=== PATIENT | female | born 1930 | race Caucasian/White ===

== ENCOUNTER 2018-11-04 22:19 | Inpatient (IN) | payer MEDICARE, OTHER ==
[2018-11-04] VITALS (7 sets, daily range): BP systolic 125–143; BP diastolic 64–87
[~2018-11-04] VITALS: Ht 152.4 cm; Wt 47.6 kg
[~2018-11-04 22:19] MED LIST: AMLO5TAB2 PO; EST1.25T PO; METO25TA PO; TRIA0.253 PO; [UNRECOGNIZED DRUG - OTHER] PO
--- OUTSIDE RECORDS SUMMARY | 2018-11-04 22:24 | XMS REPORT | Continuity of Care Document ---
Author Author [facility] Organization [facility] Address Unknown Phone Unavailable Allergies Active Description Code Type Severity Reaction Onset Reported/Identified Relationship to Patient Clinical Status Yes levofloxacin [id number] Drug Allergy Unknown N/A 07/06/2016 Yes Sulfa (Sulfonamide Antibiotics) [id number] Drug Allergy Unknown N/A 2015 Medications There is no data. 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, TYPE II OR UNSPEC TY 04/06/2014 ERIKA ANDRADE DPM Ot 726.91 EXOSTOSIS, SITE NOS 04/06/2014 ERIKA ANDRADE DPM Ot V57.1 PHYSICAL THERAPY NEC 07/06/2016 ERIKA ANDRADE DPM Ot M20.42 OTHER HAMMER TOE(S) (ACQUIRED), LEFT FLY 07/06/2016 ERIKA ANDRADE DPM Ot Z01.818 ENCOUNTER FOR OTHER PREPROCEDURAL EXAMIN 07/06/2016 ERIKA ANDRADE DPM Ot Z11.2 ENCOUNTER FOR SCREENING FOR OTHER BACTER 07/07/2016 ERIKA ANDRADE DPM Ot M20.42 OTHER HAMMER TOE(S) (ACQUIRED), LEFT FLY 07/07/2016 ERIKA ANDRADE DPM Ot Z01.818 ENCOUNTER FOR OTHER PREPROCEDURAL EXAMIN 07/07/2016 ERIKA ANDRADE DPM Ot Z11.2 ENCOUNTER FOR SCREENING FOR OTHER BACTER 07/10/2016 ERIKA ANDRADE DPM Ot M89.9 DISORDER OF BONE, UNSPECIFIED 07/13/2016 ERIKA ANDRADE DPM Ot M89.9 DISORDER OF BONE, UNSPECIFIED 07/15/2016 ERIKA ANDRADE DPM Ot M89.9 DISORDER OF BONE, UNSPECIFIED 01/20/2017 ERIKA ANDRADE DPM Ot 726.91 EXOSTOSIS, SITE NOS 01/20/2017 ERIKA ANDRADE DPM Ot V72.84 EXAM PRE-OPERATIVE NOS 01/20/2017 ANDRADE DPM, ERIKA P Ot V74.8 SCREEN-BACTERIAL DIS NEC 01/20/2017 ANDRADE DPM, ERIKA P Ot 726.91 EXOSTOSIS, SITE NOS 01/20/2017 ANDRADE DPM, ERIKA P Ot V72.84 EXAM PRE-OPERATIVE NOS 01/20/2017 ANDRADE DPM, ERIKA P Ot V74.8 SCREEN-BACTERIAL DIS NEC 10/11/2018 ANDRADE DPM, ERIKA P Ot 726.91 EXOSTOSIS, SITE NOS 10/11/2018 ANDRADE DPM, ERIKA P Ot V72.84 EXAM PRE-OPERATIVE NOS 10/11/2018 ANDRADE DPM, ERIKA P Ot V74.8 SCREEN-BACTERIAL DIS NEC 11/04/2018 ANDRADE DPM, ERIKA P Ot 726.91 EXOSTOSIS, SITE NOS 11/04/2018 NADRADE DPM, ERIKA P Ot V72.84 EXAM PRE-OPERATIVE NOS 11/04/2018 ANDRADE DPM, ERIKA P Ot V74.8 SCREEN-BACTERIAL DIS NEC Procedures There is no data. Results Test Result Range Methicillin resistant Staphylococcus aureus (MRSA) screening culture - 15:40 Methicillin resistant Staphylococcus aureus (MRSA) screening culture NEG NRG Encounters ACCT No. Visit Date/Time Discharge Status Pt. Type Provider Facility Loc./Unit Complaint [id number] 07/10/2016 07:04:00 07/10/2016 10:30:00 DIS Outpatient ERIKA ANDRADE DPM [facility] LEFT FIFTH HAMMER TOE [id number] 07/06/2016 15:17:00 07/06/2016 16:19:00 DIS Outpatient ERIKA ANDRADE DPM [facility] PREOP LEFT FIFTH HAMMER TOE [id number] 04/06/2014 06:00:00 04/06/2014 10:15:00 DIS Outpatient ERIKA ANDRADE DPM [facility] EXOTOSIS RIGHT FOOT [id number] 04/04/2014 08:00:00 04/04/2014 23:59:59 CLS Outpatient ERIKA ANDRADE DPM [facility] PREOP EXOTOSIS RIGHT FOOT [id number] 11/04/2018 22:20:00 ACT Emergency JESS WATKINS, JOVANI Webster [facility] ER FS HIGH HEART RATE
--- NOTE | 2018-11-04 22:57 | ED Cardiac General ---
History of Present Illness General Chief Complaint: Cardiac/General Problems Stated Complaint: HIGH HEART RATE Source: patient Exam Limitations: no limitations History of Present Illness Date Seen by Provider: Nov 04, 2018 Time Seen by Provider: 22:53 Initial Comments Patient developed rapid heartbeat and shortness of breath while sitting at home 30 minutes prior to arrival. Her drove her here. She has had this sensation several times over the past week or 2 but it is always gone away. She does not have any chest pain. She is compliant with her medications. She has a history of hypertension and hypercholesterolemia. She has no history of coronary artery disease or stroke. Allergies and Home Medications Allergies Coded Allergies: Sulfa (Sulfonamide Antibiotics) (Verified Allergy, Unknown, 07/06/16) levofloxacin (Verified Allergy, Unknown, 07/06/16) Home Medications Amlodipine Besylate 5 Mg Tablet, 5 MG PO DAILY, (Reported) Estrogens,Conjugated 1.25 Mg Tablet, 1 TAB PO DAILY, (Reported) Metoprolol Succinate 25 Mg Tab.sr.24h, 1 EACH PO DAILY, (Reported) Triazolam 0.25 Mg Tablet, 0.25 MG PO HS, (Reported) [Loped] , 600 MG PO BID, (Reported) Patient Home Medication List Home Medication List Reviewed: Yes Review of Systems Review of Systems Constitutional: malaise EENTM: No Symptoms Reported Respiratory: Shortness of Air Cardiovascular: Denies Chest Pain; Irregular Heart Rate, Palpitations Gastrointestinal: No Symptoms Reported Genitourinary: No Symptoms Reported Musculoskeletal: no symptoms reported Skin: no symptoms reported Psychiatric/Neurological: No Symptoms Reported Hematologic/Lymphatic: No Symptoms Reported All Other Systems Reviewed Negative Unless Noted: Yes Past Szjeiwb-Lnjxdt-Mwdwfg Hx Patient Social History Alcohol Use: Denies Use Smoking Status: Never a Smoker Recent Foreign Travel: No Contact w/Someone Who Travel: No Recent Hopitalizations: No Immunizations Up To Date Tetanus Booster (TDap): Unknown Date of Pneumonia Vaccine: May 16, 2009 Date of Influenza Vaccine: Jun 22, 2016 Seasonal Allergies Seasonal Allergies: Yes Past Medical History Hysterectomy High Cholesterol, Hypertension Headaches /Migraines Reproductive Disorders: No Sexually Transmitted Disease: No HIV/AIDS: No Arthritis Loss of Vision: Bilateral Hearing Impairment: Denies Adverse Reaction/Blood Tranf: No (HAS HAD BLOOD WITH NO REACTION) Physical Exam Vital Signs Vital Signs - First Documented 11/04/18 23:10 Pulse 174 B/P (MAP) 143/76 (98) Capillary Refill : Height, Weight, BMI Height: 4'1.00" Weight: 113lbs. 4.0oz. 51.352198nn; 33.2 BMI Method: General Appearance: No Apparent Distress, WD/WN HEENT: PERRL/EOMI, Pharynx Normal Neck: Supple Respiratory: Lungs Clear, Normal Breath Sounds Cardiovascular: No Edema, No Gallop, Tachycardia Gastrointestinal: Normal Bowel Sounds, No Pulsatile Mass Extremity: Normal Inspection, Normal Range of Motion; No Calf Tenderness, No Pedal Edema Neurologic/Psychiatric: Alert, No Motor/Sensory Deficits, Normal Mood/Affect Skin: Normal Color, Warm/Dry Progress/Results/Core Measures Results/Orders Lab Results Laboratory Tests Test 11/04/18 22:58 Range/Units White Blood Count 5.9 4.3-11.0 10^3/uL Red Blood Count 4.00 L 4.35-5.85 10^6/uL Hemoglobin 13.4 11.5-16.0 G/DL Hematocrit 41 35-52 % Mean Corpuscular Volume 97 80-99 FL Mean Corpuscular Hemoglobin 34 25-34 PG Mean Corpuscular Hemoglobin Concent 33 32-36 G/DL Red Cell Distribution Width 14.0 10.0-14.5 % Platelet Count 172 130-400 10^3/uL Mean Platelet Volume 10.4 7.4-10.4 FL Neutrophils (%) (Auto) 50 42-75 % Lymphocytes (%) (Auto) 21 12-44 % Monocytes (%) (Auto) 23 H 0-12 % Eosinophils (%) (Auto) 3 0-10 % Basophils (%) (Auto) 2 0-10 % Neutrophils # (Auto) 2.9 1.8-7.8 X 10^3 Lymphocytes # (Auto) 1.2 1.0-4.0 X 10^3 Monocytes # (Auto) 1.3 H 0.0-1.0 X 10^3 Eosinophils # (Auto) 0.2 0.0-0.3 10^3/uL Basophils # (Auto) 0.1 0.0-0.1 10^3/uL Prothrombin Time 14.3 12.2-14.7 SEC INR Comment 1.1 0.8-1.4 Activated Partial Thromboplast Time 33 24-35 SEC My Orders Orders - JOVANI MERCADO MD Cbc With Automated Diff (11/04/18 22:44) Magnesium (11/04/18 22:44) Chest 1 View Ap/Pa Only (11/04/18 22:44) Ekg Tracing (11/04/18 22:44) Comprehensive Metabolic Panel (11/04/18 22:44) Protime With Inr (11/04/18 22:44) Partial Thromboplastin Time (11/04/18 22:44) Monitor-Rhythm Ecg Trace Only (11/04/18 22:44) Saline Lock/Iv-Start (11/04/18 22:44) Probnp Fs (11/04/18 22:44) Diltiazem Injection (Cardizem Injection) (11/04/18 23:00) Troponin T (11/04/18 23:06) Ns (Ivpb) (Sodium C... W/Diltiazem Injec (11/04/18 23:15) Enoxaparin Injection (Lovenox Injection) (11/04/18 23:15) Manual Differential (11/04/18 22:58) Medications Given in ED Current Medications Medications Dose Ordered Sig/Edward Route Start Time Stop Time Status Last Admin Dose Admin Diltiazem HCl 20 mg ONCE ONCE IVP 11/04/18 23:00 11/04/18 23:02 DC 11/04/18 23:06 15 MG Vital Signs/I&O 11/04/18 11/04/18 23:10 23:13 Pulse 174 96 B/P (MAP) 143/76 (98) 143/73 (96) Progress Progress Note : Time: 23:24 Progress Note Rate came down nicely with Cardizem. She was given 15 mg out of the 20 mg ordered. Her weight currently is 87 bpm. She will need transfer to a higher level care. She request [place]. Lovenox was given and she was started on a Cardizem drip. Initial ECG Impression Date: Nov 04, 2018 Initial ECG Impression Time: 22:56 Initial ECG Rate: 178 Initial ECG Rhythm: SVT Initial ECG Intervals: Normal Initial ECG Impression: Atrial Fibrillation w/RVR Initial ECG Comparisson: No Previous ECG Available Departure Communication (Admissions) Time/Spoke to Admitting Phy: 23:[address] Coffey at [facility]. She accepted transfer of the patient to the ICU. Impression Primary Impression: Atrial fibrillation Additional Impression: Dyspnea Disposition: ADMITTED INPATIENT Condition: Stable Admissions Decision to Admit Reason: Admit from ER (General) Decision to Admit/Date: Nov 04, 2018 Time/Decision to Admit Time: 23:45 Departure-Patient Inst. Referrals: DUANE ALVAREZ MD (PCP) Primary Care Physician JOVANI MERCADO MD Nov 04, 2018 22:57
[2018-11-04] MEDS ORDERED: DILTIAZEM 25 MG/5 ML INJ (CARDIZEM) VIAL IVP ONE (23:00)
[2018-11-04 23:15] LABS: WHITE BLOOD COUNT 5.9 10^3/uL (4.3-11.0)
[2018-11-04] MEDS ORDERED: DILTIAZEM INJECTION 125 MG in NS (IVPB) 100 ML IV SCH (23:15)
[2018-11-04] MEDS ORDERED: ENOXAPARIN 60 MG/0.6 ML (LOVENOX) SYR SC ONE (23:15)
[2018-11-04 23:16] LABS: BASOPHILS % (AUTO) 2 % (0-10); EOSINOPHILS % (AUTO) 3 % (0-10); HEMATOCRIT 41 % (35-52); LYMPHOCYTES % (AUTO) 21 % (12-44); MEAN CORPUSCULAR HGB CONC 33 G/DL (32-36); MEAN CORPUSCULAR VOLUME 97 FL (80-99); MEAN PLATELET VOLUME 10.4 FL (7.4-10.4); MONOCYTES % (AUTO) 23 % (0-12); NEUTROPHILS % (AUTO) 50 % (42-75); PLATELET COUNT 172 10^3/uL (130-400)
[2018-11-04 23:17] LABS: BASOPHILS # (AUTO) 0.1 10^3/uL (0.0-0.1); EOSINOPHILS # (AUTO) 0.2 10^3/uL (0.0-0.3); LYMPHOCYTES # (AUTO) 1.2 X 10^3 (1.0-4.0); MONOCYTES # (AUTO) 1.3 X 10^3 (0.0-1.0); NEUTROPHILS # (AUTO) 2.9 X 10^3 (1.8-7.8)
[2018-11-04 23:22] LABS: INR 1.1 (0.8-1.4); PROTHROMBIN TIME PATIENT 14.3 SEC (12.2-14.7)
[2018-11-04 23:42] LABS: HEMOGLOBIN 13.4 G/DL (11.5-16.0); MEAN CORPUSCULAR HEMOGLOBIN 34 PG (25-34)
--- NOTE | 2018-11-04 23:49 | NUR ---
Dr Elizondo notified [facility] order for 5 vials 25mg per 5 mL diltalizem to be pulled rather than 125mg vial of 25mL of diltalizem. verbal order to pull 25mL vial to mix cardizem drip.
[2018-11-05] VITALS (30 sets, daily range): BP systolic 125–159; BP diastolic 60–91
[2018-11-05] MEDS ORDERED: NS IV 1000 ML 1,000 ML IV SCH
[2018-11-05 00:02] LABS: NEUTROPHILS % (MANUAL) 49 %
[2018-11-05 00:03] LABS: BAND NEUTROPHILS 8 %; BASOPHILS % (MANUAL) 1 %; EOSINOPHILS % (MANUAL) 2 %; LYMPHOCYTES % (MANUAL) 19 %; MONOCYTES % (MANUAL) 19 %; MYELOCYTES % 2 %
[2018-11-05 00:15] LABS: BILIRUBIN,TOTAL 0.4 MG/DL (0.1-1.0); CALCIUM 9.3 MG/DL (8.5-10.1); CREATININE SERUM 0.91 MG/DL (0.60-1.30); MAGNESIUM 1.9 MG/DL (1.8-2.4); POTASSIUM 3.5 MMOL/L (3.6-5.0)
[2018-11-05 00:16] LABS: ALBUMIN 3.8 GM/DL (3.2-4.5); TOTAL PROTEIN 7.4 GM/DL (6.4-8.2)
--- NOTE | 2018-11-05 00:30 | NUR ---
started Normal saline at KVO for this Patient.
--- NOTE | 2018-11-05 00:59 | NUR ---
45 mL Normal saline infused
[2018-11-05] MEDS ORDERED: ACETAMINOPHEN 325 MG TABLET PO PRN (02:30)
[2018-11-05 03:45] LABS: BASOPHILS # (AUTO) 0.1 10^3/uL (0.0-0.1); BASOPHILS % (AUTO) 1 % (0-10); EOSINOPHILS # (AUTO) 0.2 10^3/uL (0.0-0.3); EOSINOPHILS % (AUTO) 3 % (0-10); HEMATOCRIT 37 % (35-52); HEMOGLOBIN 12.7 G/DL (11.5-16.0); LYMPHOCYTES # (AUTO) 0.9 X 10^3 (1.0-4.0); LYMPHOCYTES % (AUTO) 16 % (12-44); MEAN CORPUSCULAR HEMOGLOBIN 32 PG (25-34); MEAN CORPUSCULAR HGB CONC 34 G/DL (32-36); MEAN CORPUSCULAR VOLUME 95 FL (80-99); MEAN PLATELET VOLUME 10.3 FL (7.4-10.4); MONOCYTES # (AUTO) 1.2 X 10^3 (0.0-1.0); MONOCYTES % (AUTO) 20 % (0-12); NEUTROPHILS # (AUTO) 3.5 X 10^3 (1.8-7.8); NEUTROPHILS % (AUTO) 60 % (42-75); PLATELET COUNT 178 10^3/uL (130-400); RED CELL DISTRIBUTION WIDTH 14.2 % (10.0-14.5); WHITE BLOOD COUNT 5.9 10^3/uL (4.3-11.0)
[2018-11-05 03:56] LABS: BUN/CREATININE RATIO 14; CARBON DIOXIDE 17 MMOL/L (21-32); CHLORIDE 109 MMOL/L (98-107); CREATININE SERUM 0.85 MG/DL (0.60-1.30); GFR ESTIMATED > 60; GLUCOSE 130 MG/DL (70-105); MAGNESIUM 1.7 MG/DL (1.8-2.4); PHOSPHORUS 2.6 MG/DL (2.3-4.7); POTASSIUM 2.8 MMOL/L (3.6-5.0); SODIUM 138 MMOL/L (135-145)
[2018-11-05] MEDS: NS IV 1000 ML 1,000 ML IV SCH (04:36)
[2018-11-05] MEDS: POTASSIUM CL 10MEQ/50ML IVPB 50 ML IV SCH ×8 (04:36→23:45)
[2018-11-05] MEDS: DILTIAZEM 125 MG/NS 100 ML IV SCH ×2 (04:44)
[2018-11-05] MEDS ORDERED: DILTIAZEM 125 MG/25 ML IV (CARDIZEM) IV ONE (05:11)
[2018-11-05] MEDS: MAGNESIUM 1 GM/100 ML IVPB 100 ML IV SCH ×2 (06:58→08:26)
[2018-11-05] MEDS: KCL 20 MEQ TAB (K-DUR) PO SCH (06:58)
--- NOTE | 2018-11-05 07:06 | Diagnostic Imaging Report ---
INDICATION: Chest pain. Time of exam: 10:59 PM No prior studies are available for comparison. Right hemidiaphragm is elevated. The heart size is normal. No infiltrates are seen. The pulmonary vascularity is normal. No effusion or pneumothorax is identified. IMPRESSION: No acute cardiopulmonary process is detected. Dictated by: Dictated on workstation # [id number]
[2018-11-05] MEDS ORDERED: FLU QUADRIvalent (5+ YOA) 2018-2019 (AFLURIA) 0.5 ML IM ONE (07:15)
[2018-11-05] MEDS ORDERED: ENOXAPARIN 100 MG/1 ML (LOVENOX) SYR SC SCH (09:00)
--- NOTE | 2018-11-05 09:52 | History & Physical-Hospitalist ---
History of Present Illness HPI/Chief Complaint This is an 88-year-old white female who was accepted in transfer from [place] last night with new onset atrial fibrillation with rapid ventricular response. The patient notes that for the last several weeks she's been having intermittent trouble with her heart racing feeling dizzy with these episodes and diaphoretic. She would lay down and they would pass. Last night this episode did not pass and she presented to the emergency room with similar complaints. Currently the patient is awake and alert and in sinus rhythm and without complaint Source: patient Exam Limitations: no limitations Date Seen 11/05/18 Time Seen by a Provider: 09:00 Attending Physician Irais Coffey MD PCP Duane Dimas MD Referring Physician Date of Admission Nov 04, 2018 at 23:40 Home Medications & Allergies Home Medications Reviewed patient Home Medication Reconciliation performed by pharmacy medication reconciliations development technician and/or nursing. Patients Allergies have been reviewed. 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) Alcohol Use: Denies Use Recreational Drug Use: No Smoking Status: Never a Smoker 2nd Hand Smoke Exposure: No Recent Foreign Travel: No Contact w/other who traveled: No Recent Hopitalizations: No Recent Infectious Disease Expo: No Immunizations Up To Date Tetanus Booster (TDap): Unknown Date of Pneumonia Vaccine: Oct 28, 2014 Date of Influenza Vaccine: Aug 30, 2018 Seasonal Allergies Seasonal Allergies: No Past Medical History Surgeries: Appendectomy, Bladder Surgery, Hysterectomy Cardiac: High Cholesterol, Hypertension Neurological: Headaches /Migraines Reproductive: No Sexually Transmitted Disease: No HIV/AIDS: No Hysterectomy Genitourinary: Bladder Infection, UTI-Chronic Musculoskeletal: Arthritis Loss of Vision: Bilateral Hearing Impairment: Denies Adverse Reaction to Blood Gaming: No (HAS HAD BLOOD WITH NO REACTION) Family History Reviewed Nursing Family Hx No Pertinent Family Hx Review of Systems Constitutional: see HPI, diaphoresis, dizziness (With episodes where her heart races) EENTM: no symptoms reported Respiratory: no symptoms reported Cardiovascular: palpitations Gastrointestinal: no symptoms reported Genitourinary: frequency Musculoskeletal: no symptoms reported Skin: change in color (Lower legs) Psychiatric/Neurological: No Symptoms Reported Physical Exam Physical Exam Vital Signs Vital Signs - First Documented 11/04/18 11/05/18 22:25 01:50 Temp 99.6 Pulse 179 Resp 20 B/P (MAP) 135/88 (104) Pulse Ox 98 O2 Delivery Room Air Capillary Refill : Less Than 3 Seconds Height, Weight, BMI Height: 5'0.00" Weight: 105lbs. 0.0oz. 47.147003aq; 20.5 BMI Method:Stated General Appearance: No Apparent Distress, WD/WN HEENT: Other (Tinctures upper and lower) Neck: Full Range of Motion, Normal Inspection, Supple Respiratory: Chest Non Tender, Lungs Clear, Normal Breath Sounds, No Accessory Muscle Use, No Respiratory Distress Cardiovascular: No Gallop, Other (Decreased lower extremity pulses with chronic venous stasis change) Gastrointestinal: Normal Bowel Sounds, No Organomegaly, Non Tender, Soft Back: Normal Inspection, No CVA Tenderness, No Vertebral Tenderness Extremity: Calf Tenderness Neurologic/Psychiatric: Alert, Oriented x3, No Motor/Sensory Deficits, Normal 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 Imaging: Reviewed Imaging Report Assessment/Plan Admission Diagnosis A. fib with RVR monocytosis hypokalemia metabolic acidosis hypertension by history hyperlipidemia chronic urinary tract infections Hypomagnesemia Plan to replace electrolytes check urine for protein and consult cardiology Admission Status: Observation Diagnosis/Problems Diagnosis/Problems (1) Atrial fibrillation Status: Acute Qualifiers: Atrial fibrillation type: paroxysmal Qualified Codes: I48.0 - Paroxysmal atrial fibrillation (2) Metabolic acidosis Status: Chronic (3) Hypokalemia Status: Acute (4) Monocytosis (5) Dyspnea Status: Acute Clinical Quality Measures DVT/VTE Risk/Contraindication: Risk Factor Score Per Nursin RFS Level Per Nursing on Admit: 2=Moderate Copy Copies To 1: DUANE DIMAS MD, KATHLEEN M MD Nov 05, 2018 09:51
[2018-11-05 11:54] LABS: BILIRUBIN,URINE NEGATIVE (NEGATIVE); CLARITY,URINE CLEAR; COLOR,URINE YELLOW; GLUCOSE, URINE (UA) NEGATIVE (NEGATIVE); KETONES,URINE NEGATIVE (NEGATIVE); LEUKOCYTE ESTERASE ,URINE NEGATIVE (NEGATIVE); NITRITE,URINE NEGATIVE (NEGATIVE); PH,URINE 7 (5-9); PROTEIN,URINE NEGATIVE (NEGATIVE); UROBILINOGEN,URINE NORMAL (NORMAL)
[2018-11-05 12:03] LABS: BACTERIA,URINE TRACE /HPF
--- NOTE | 2018-11-05 15:47 | Consultation-Cardiology ---
HPI-Cardiology Cardiology Consultation: Date of Consultation 11/05/18 Time Seen by a Provider: 15:10 Date of Admission Attending Physician Irais Coffey MD Admitting Physician Steven Dimas MD Consulting Physician DEVON ANDREWS MD, MA, FACP, FACC, FSCAI, CCDS HPI: Chief Complaint: Reason for consultation: PAF HPI: 88 yo woman with 2 years of palpitations, averaging once or twice a month, lasting up to an hour and a half, consisting of a feeling or rapid heart beat that is irreg and associated with a feeling of gen weakness. Onset is sudden and so is termination. Had two episodes yesterday and decided to come in to [facility]. Was diagnosed with PAF, placed on iv dilt, converted to NSR, was sent to this hosp for further eval. She denies cp or syncope or shortness of breath or leg swelling Review of Systems-Cardiology Review of Systems Constitutional: No malaise; tiredness (chronic); No weight loss, No weight gain Eyes: No vision change Ears/Nose/Throat: No ear discharge, No nasal drainage, No recent hearing loss Respiratory: As described under HPI Cardiovascular: As described under HPI Gastrointestinal: No constipation, No diarrhea, No nausea, No vomiting Genitourinary: No dysuria, No hematuria, No urine frequency changes Musculoskeletal: back pain (chronic) Skin: other (burises easily); No ulcerations Psychiatric/Neurological: No seizure, No focal weakness, No syncope Hematologic: other (bruises easily); No bleeding abnormalities All Other Systems Reviewed Negative Unless Noted: Yes HFW-Lrnahb-Nfnfqn Hx Patient Social History Marrital Status: (For 13 years cycle marriage) 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 Family Medical History Family Medical History: No fam h/o early CAD or SCD Allergies and Home Medications Allergies Coded Allergies: Sulfa (Sulfonamide Antibiotics) (Verified Allergy, Unknown, 07/06/16) levofloxacin (Verified Allergy, Unknown, 07/06/16) Home Medications Amlodipine Besylate 5 Mg Tablet, 5 MG PO DAILY, (Reported) Estrogens,Conjugated 1.25 Mg Tablet, 1 TAB PO DAILY, (Reported) Metoprolol Succinate 25 Mg Tab.sr.24h, 1 EACH PO DAILY, (Reported) Triazolam 0.25 Mg Tablet, 0.25 MG PO HS, (Reported) [Loped] , 600 MG PO BID, (Reported) Patient Home Medication List Home Medication List Reviewed: Yes Physical Exam-Cardiology Physical Exam Vital Signs/I&O 11/05/18 11/05/18 11/05/18 11/05/18 04:00 04:00 05:00 06:00 Pulse 71 71 73 Resp 12 17 18 B/P (MAP) 146/71 (96) 139/70 (93) 130/70 (90) Pulse Ox 98 96 95 96 O2 Delivery Room Air Room Air Room Air Room Air 11/05/18 11/05/18 11/05/18 11/05/18 06:59 07:00 08:00 08:00 Temp 98.3 Pulse 71 71 72 Resp 17 16 B/P (MAP) 130/80 (97) 125/71 (89) Pulse Ox 94 96 O2 Delivery Room Air Room Air 11/05/18 11/05/18 11/05/18 11/05/18 08:00 09:00 10:00 11:00 Pulse 73 69 71 B/P (MAP) 129/62 (84) 132/68 (89) 144/68 (93) Pulse Ox 97 94 94 97 O2 Delivery Room Air Room Air Room Air Room Air 11/05/18 11/05/18 11/05/18 11/05/18 12:00 12:00 13:00 13:10 Temp 98.3 Pulse 68 71 70 Resp 31 16 B/P (MAP) 132/60 (84) 136/70 (92) Pulse Ox 97 96 95 O2 Delivery Room Air Room Air Room Air 11/05/18 11/05/18 14:00 15:00 Pulse 73 69 Resp 18 18 B/P (MAP) 128/84 (99) 139/66 (90) Pulse Ox 96 96 O2 Delivery Room Air Room Air Capillary Refill : Less Than 3 Seconds Constitutional: AAO x 3, well-developed, well-nourished HEENT: EOMI, hearing is well preserved; No xanthelasmas are seen Neck: No carotid bruit; carotid pulses are 2 + bilaterally, with good upstrokes Respiratory: No accessory muscle use; lungs clear to percussion, lungs clear to auscultation Cardiovascular: regular rate-rhythm, S1 and S2, systolic murmur (faint RASHMI at card base) Gastrointestinal: No tender; soft; No guarding, No rebound; audible bowel sounds Extremities: No clubbing, No cyanosis, No significant edema Neurologic/Psychiatric: oriented x 3, grossly intact, power is 5/5 both on sides Skin: No rash on exposed areas, No ulcerations on exposed areas; other ( multiple bruises on the upper and lower ext, at sites of venous punctures or minor trauma (per pt)) Data Review Labs Laboratory Tests 11/04/18 22:58: White Blood Count 5.9, Red Blood Count 4.00L, Hemoglobin 13.4, Hematocrit 41, Mean Corpuscular Volume 97, Mean Corpuscular Hemoglobin 34, Mean Corpuscular Hemoglobin Concent 33, Red Cell Distribution Width 14.0, Platelet Count 172, Mean Platelet Volume 10.4, Neutrophils (%) (Auto) 50, Lymphocytes (%) (Auto) 21 , Monocytes (%) (Auto) 23H, Eosinophils (%) (Auto) 3, Basophils (%) (Auto) 2, Neutrophils # (Auto) 2.9, Lymphocytes # (Auto) 1.2, Monocytes # (Auto) 1.3H, Eosinophils # (Auto) 0.2, Basophils # (Auto) 0.1, Neutrophils % (Manual) 49, Lymphocytes % (Manual) 19, Monocytes % (Manual) 19, Eosinophils % (Manual) 2, Basophils % (Manual) 1, Myelocytes % 2, Band Neutrophils 8, Prothrombin Time 14.3, INR Comment 1.1, Activated Partial Thromboplast Time 33, Sodium Level 140 , Potassium Level 3.5L, Chloride Level 104, Carbon Dioxide Level 15L, Anion Gap 21H, Blood Urea Nitrogen 14, Creatinine 0.91, Estimat Glomerular Filtration Rate 58, BUN/Creatinine Ratio 15, Glucose Level 129H, Calcium Level 9.3, Corrected Calcium 9.5, Magnesium Level 1.9, Total Bilirubin 0.4, Aspartate Amino Transf (AST/SGOT) 32, Alanine Aminotransferase (ALT/SGPT) 18, Alkaline Phosphatase 102, Troponin T 14H, Pro-B-Type Natriuretic Peptide 152.9H, Total Protein 7.4, Albumin 3.8 11/05/18 03:02: White Blood Count 5.9, Red Blood Count 3.92L, Hemoglobin 12.7, Hematocrit 37, Mean Corpuscular Volume 95, Mean Corpuscular Hemoglobin 32, Mean Corpuscular Hemoglobin Concent 34, Red Cell Distribution Width 14.2, Platelet Count 178, Mean Platelet Volume 10.3, Neutrophils (%) (Auto) 60, Lymphocytes (%) (Auto) 16 , Monocytes (%) (Auto) 20H, Eosinophils (%) (Auto) 3, Basophils (%) (Auto) 1, Neutrophils # (Auto) 3.5, Lymphocytes # (Auto) 0.9L, Monocytes # (Auto) 1.2H, Eosinophils # (Auto) 0.2, Basophils # (Auto) 0.1, Sodium Level 138, Potassium Level 2.8L, Chloride Level 109H, Carbon Dioxide Level 17L, Anion Gap 12, Blood Urea Nitrogen 12, Creatinine 0.85, Estimat Glomerular Filtration Rate > 60, BUN/ Creatinine Ratio 14, Glucose Level 130H, Calcium Level 9.0, Magnesium Level 1.7L , Phosphorus Level 2.6, Thyroid Stimulating Hormone (TSH) 1.94 11/05/18 10:50: Urine Color YELLOW, Urine Clarity CLEAR, Urine pH 7, Urine Specific [place] 1.010L, Urine Protein NEGATIVE, Urine Glucose (UA) NEGATIVE, Urine Ketones NEGATIVE, Urine Nitrite NEGATIVE, Urine Bilirubin NEGATIVE, Urine Urobilinogen NORMAL, Urine Leukocyte Esterase NEGATIVE, Urine RBC (Auto) NEGATIVE, Urine RBC NONE, Urine WBC NONE, Urine Crystals NONE, Urine Bacteria TRACE, Urine Casts NONE, Urine Mucus NEGATIVE, Urine Culture Indicated NO Laboratory Tests 11/04/18 22:58 11/05/18 03:02 A/P-Cardiology Assessment/Admission Diagnosis PAF Hypokalemia, etiology unclear H/o hyperlipidemia H/o hypertension Discussion and Recomendations * D/c iv dilt and initiate oral, long-acting dilt for vent rate control. D/c her beta-nestor and amlodipine (to allow more room on bp for oral diltiazem) * D/c Lovenox and replace with Eliquis. Will use 2.5 mg bid, given age 58 and BMI approx 20 * Replenish K * Check TSH * Echo * Consider sleep studies as an outpatient * Consider myocardial perfusion imaging as an outpatient * I had long discussion with her regarding her CV issues and the rationale for the plan outlined above * Outpatient cardiac f/u is advised Clinical Quality Measures DVT/VTE Risk/Contraindication: Risk Factor Score Per Nursin RFS Level Per Nursing on Admit: 2=Moderate DEVON ANDREWS MD FACP FAC CCDS Nov 05, 2018 15:47
[2018-11-05] MEDS ORDERED: DILTIAZEM 240 MG (CARDIZEM CD) CAP PO NR (16:02)
[2018-11-05 20:32] LABS: BUN/CREATININE RATIO 10; CALCIUM 8.4 MG/DL (8.5-10.1); CARBON DIOXIDE 18 MMOL/L (21-32); CHLORIDE 112 MMOL/L (98-107); CREATININE SERUM 0.87 MG/DL (0.60-1.30); GFR ESTIMATED > 60; GLUCOSE 150 MG/DL (70-105); MAGNESIUM 2.3 MG/DL (1.8-2.4); POTASSIUM 3.2 MMOL/L (3.6-5.0); SODIUM 141 MMOL/L (135-145)
[2018-11-05] MEDS: APIXABAN 2.5 MG (ELIQUIS) TABLET PO SCH (22:05)
[2018-11-06] VITALS (7 sets, daily range): BP systolic 132–149; BP diastolic 69–94
[2018-11-06] MEDS: POTASSIUM CL 10MEQ/50ML IVPB 50 ML IV SCH ×3 (00:32→03:38)
[2018-11-06] MEDS: NS IV 1000 ML 1,000 ML IV SCH ×2 (03:37→07:14)
[2018-11-06] MEDS: DILTIAZEM 125 MG/NS 100 ML IV SCH ×2 (03:37)
[2018-11-06] MEDS: MAGNESIUM 1 GM/100 ML IVPB 100 ML IV SCH (03:38)
[2018-11-06] MEDS: KCL 20 MEQ TAB (K-DUR) PO SCH (03:38)
[2018-11-06 03:59] LABS: BASOPHILS # (AUTO) 0.1 10^3/uL (0.0-0.1); BASOPHILS % (AUTO) 1 % (0-10); EOSINOPHILS # (AUTO) 0.2 10^3/uL (0.0-0.3); EOSINOPHILS % (AUTO) 3 % (0-10); HEMATOCRIT 37 % (35-52); HEMOGLOBIN 12.3 G/DL (11.5-16.0); LYMPHOCYTES # (AUTO) 0.9 X 10^3 (1.0-4.0); LYMPHOCYTES % (AUTO) 16 % (12-44); MEAN CORPUSCULAR HEMOGLOBIN 32 PG (25-34); MEAN CORPUSCULAR HGB CONC 33 G/DL (32-36); MEAN CORPUSCULAR VOLUME 95 FL (80-99); MEAN PLATELET VOLUME 10.4 FL (7.4-10.4); MONOCYTES # (AUTO) 1.1 X 10^3 (0.0-1.0); MONOCYTES % (AUTO) 20 % (0-12); NEUTROPHILS # (AUTO) 3.4 X 10^3 (1.8-7.8); NEUTROPHILS % (AUTO) 60 % (42-75); PLATELET COUNT 172 10^3/uL (130-400); WHITE BLOOD COUNT 5.7 10^3/uL (4.3-11.0)
[2018-11-06 04:20] LABS: ALANINE AMINOTRANSFERASE 20 U/L (0-55); ALBUMIN 3.6 GM/DL (3.2-4.5); ALKALINE PHOSPHATASE 87 U/L (40-136); BILIRUBIN,TOTAL 0.4 MG/DL (0.1-1.0); BUN/CREATININE RATIO 12; CARBON DIOXIDE 16 MMOL/L (21-32); CHLORIDE 112 MMOL/L (98-107); CREATININE SERUM 0.83 MG/DL (0.60-1.30); GFR ESTIMATED > 60; GLUCOSE 120 MG/DL (70-105); MAGNESIUM 2.3 MG/DL (1.8-2.4); POTASSIUM 4.2 MMOL/L (3.6-5.0); SODIUM 140 MMOL/L (135-145); TOTAL PROTEIN 6.6 GM/DL (6.4-8.2)
[2018-11-06] MEDS: APIXABAN 2.5 MG (ELIQUIS) TABLET PO SCH (08:26)
[2018-11-06] MEDS ORDERED: DILTIAZEM 240 MG (CARDIZEM CD) CAP PO SCH (09:00)
[2018-11-06] MEDS ORDERED: DILT240C97 PO (09:12)
[2018-11-06] MEDS ORDERED: APIX2.5T PO (09:12)
--- NOTE | 2018-11-06 09:18 | Diagnostic Imaging Report ---
Indication: Dyspnea. Comparison: 11/04/2018. Discussion: Single portable upright view of the chest was obtained. Elevated right hemidiaphragm is again noted. Normal heart size. Atelectasis is present within the left lung base. No new consolidation, pleural fluid, or pneumothorax. No osseous abnormality. Impression: 1. Stable negative chest. Dictated by: Dictated on workstation # [id number]
--- NOTE | 2018-11-06 09:19 | Discharge Summary-Hospitalist ---
Diagnosis/Chief Complaint Date of Admission Nov 04, 2018 at 23:40 Date of Discharge November 06, 2018 at 11 a.m. Discharge Date: Nov 06, 2018 Discharge Time: 11:00 Admission Diagnosis Nikole castaneda with RVR monocytosis hypokalemia metabolic acidosis hypertension by history hyperlipidemia chronic urinary tract infections Hypomagnesemia Plan to replace electrolytes check urine for protein and consult cardiology Discharge Diagnosis Paroxysmal atrial fibrillation with rapid ventricular response Hypokalemia Hypomagnesemia Hyperlipidemia Hypertension Monocytosis (1) Atrial fibrillation Status: Acute (2) Metabolic acidosis Status: Chronic (3) Hypokalemia Status: Acute (4) Monocytosis (5) Dyspnea Status: Acute Discharge Summary Procedures/Consulations Dr. Rivera Discharge Physical Exam Allergies: Coded Allergies: Sulfa (Sulfonamide Antibiotics) (Verified Allergy, Unknown, 07/06/16) levofloxacin (Verified Allergy, Unknown, 07/06/16) Vitals & I&Os Vital Signs Date Time Temp Pulse Resp B/P (MAP) Pulse Ox O2 Delivery O2 Flow Rate FiO2 11/06/18 08:00 95 Room Air 11/06/18 07:30 98.8 11/06/18 07:00 69 11/06/18 05:00 22 134/87 (103) General Appearance: No Apparent Distress, WD/WN HEENT: Other Respiratory: Chest Non Tender (Dentures), Lungs Clear, Normal Breath Sounds, No Accessory Muscle Use, No Respiratory Distress Cardiovascular: Regular Rate, Rhythm, No Gallop, Systolic Murmur (1/6), Other ( Decreased lower extremity pulses with chronic venous stasis changes) Gastrointestinal: Non Tender, Soft Extremity: No Pedal Edema Skin: Warm/Dry, Ecchymosis (Arms and legs) Neurologic/Psychiatric: Alert, Oriented x3, No Motor/Sensory Deficits, Normal 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 Patient was placed on Cardizem drip and converted to normal sinus rhythm. The patient was then changed to oral Cardizem with continuation of her sinus rhythm. She was placed on Eliquis for stroke prophylaxis. She was seen in consultation by Dr. Rivera who suggested an echocardiogram and further evaluation as an outpatient for coronary artery disease. The patient is anxious to go home. Her hypo-kalemia has been corrected as has her low magnesium. The patient has had a low serum bicarbonate. Because of a monocytosis a serum protein electrophoresis was obtained which is pending at the time of this discharge. Her beta nestor has been discontinued. Labs (last 24 hrs) Laboratory Tests 11/05/18 10:50: Urine Color YELLOW, Urine Clarity CLEAR, Urine pH 7, Urine Specific [place] 1.010L, Urine Protein NEGATIVE, Urine Glucose (UA) NEGATIVE, Urine Ketones NEGATIVE, Urine Nitrite NEGATIVE, Urine Bilirubin NEGATIVE, Urine Urobilinogen NORMAL, Urine Leukocyte Esterase NEGATIVE, Urine RBC (Auto) NEGATIVE, Urine RBC NONE, Urine WBC NONE, Urine Crystals NONE, Urine Bacteria TRACE, Urine Casts NONE, Urine Mucus NEGATIVE, Urine Culture Indicated NO 11/05/18 20:10: Sodium Level 141, Potassium Level 3.2L, Chloride Level 112H, Carbon Dioxide Level 18L, Anion Gap 11, Blood Urea Nitrogen 9, Creatinine 0.87, Estimat Glomerular Filtration Rate > 60, BUN/Creatinine Ratio 10, Glucose Level 150H, Calcium Level 8.4L, Magnesium Level 2.3 11/06/18 03:10: Sodium Level 140, Potassium Level 4.2, Chloride Level 112H, Carbon Dioxide Level 16L, Anion Gap 12, Blood Urea Nitrogen 10, Creatinine 0.83, Estimat Glomerular Filtration Rate > 60, BUN/Creatinine Ratio 12, Glucose Level 120H, Calcium Level 9.0, Magnesium Level 2.3, White Blood Count 5.7, Red Blood Count 3.90L, Hemoglobin 12.3, Hematocrit 37, Mean Corpuscular Volume 95, Mean Corpuscular Hemoglobin 32, Mean Corpuscular Hemoglobin Concent 33, Red Cell Distribution Width 14.0, Platelet Count 172, Mean Platelet Volume 10.4, Neutrophils (%) (Auto) 60, Lymphocytes (%) (Auto) 16, Monocytes (%) (Auto) 20H, Eosinophils (%) (Auto) 3, Basophils (%) (Auto) 1, Neutrophils # (Auto) 3.4, Lymphocytes # (Auto) 0.9L, Monocytes # (Auto) 1.1H, Eosinophils # (Auto) 0.2, Basophils # (Auto) 0.1, Corrected Calcium 9.3, Phosphorus Level 3.0, Total Bilirubin 0.4, Aspartate Amino Transf (AST/SGOT) 33, Alanine Aminotransferase ( ALT/SGPT) 20, Alkaline Phosphatase 87, Total Protein 6.6, Albumin 3.6 Patient resulted labs reviewed. Pending Labs Laboratory Tests 11/06/18 03:10: White Blood Count 5.7, Red Blood Count 3.90, Hemoglobin 12.3, Hematocrit 37, Mean Corpuscular Volume 95, Mean Corpuscular Hemoglobin 32, Mean Corpuscular Hemoglobin Concent 33, Red Cell Distribution Width 14.0, Platelet Count 172, Mean Platelet Volume 10.4, Neutrophils (%) (Auto) 60, Lymphocytes (%) (Auto) 16 , Monocytes (%) (Auto) 20, Eosinophils (%) (Auto) 3, Basophils (%) (Auto) 1, Neutrophils # (Auto) 3.4, Lymphocytes # (Auto) 0.9, Monocytes # (Auto) 1.1, Eosinophils # (Auto) 0.2, Basophils # (Auto) 0.1, Sodium Level 140, Potassium Level 4.2, Chloride Level 112, Carbon Dioxide Level 16, Anion Gap 12, Blood Urea Nitrogen 10, Creatinine 0.83, Estimat Glomerular Filtration Rate > 60, BUN/ Creatinine Ratio 12, Glucose Level 120, Calcium Level 9.0, Corrected Calcium 9.3 , Phosphorus Level 3.0, Magnesium Level 2.3, Total Bilirubin 0.4, Aspartate Amino Transf (AST/SGOT) 33, Alanine Aminotransferase (ALT/SGPT) 20, Alkaline Phosphatase 87, Total Protein 6.6, Albumin 3.6 Imaging: Reviewed Imaging Report Discussion & Recommendations Discharge Planning: >30 minutes discharge planning Stable Discharge Home Medications: Active Scripts Active Diltiazem 24Hr Cd (Diltiazem HCl) 240 Mg Cap.er.24h 240 Mg PO DAILY 30 Days Eliquis (Apixaban) 2.5 Mg Tablet 2.5 Mg PO BID 30 Days Reported [Loped] 600 Mg PO BID Instructions to patient/family Please see electronic discharge instructions given to patient. Clinical Quality Measures DVT/VTE Risk/Contraindication: Risk Factor Score Per Nursin RFS Level Per Nursing on Admit: 2=Moderate Copy Copies To 1: DUANE ALVAREZ MD Problem Qualifiers (1) Atrial fibrillation: Atrial fibrillation type: paroxysmal Qualified Codes: I48.0 - Paroxysmal atrial fibrillation LILLIAN TRIPLETT MD Nov 06, 2018 09:19
--- NOTE | 2018-11-06 16:16 | Progress Note-Cardiology ---
Cardiology SOAP Progress Note Subjective: Feels well No cp or palp or syncope Wishes to go home Objective: I&O/Vital Signs 11/06/18 11/06/18 11/06/18 11/06/18 05:00 07:00 07:00 07:30 Temp 98.8 Pulse 73 69 69 Resp 22 18 B/P (MAP) 134/87 (103) 148/85 (106) Pulse Ox 94 95 O2 Delivery Room Air Room Air 11/06/18 11/06/18 11/06/18 11/06/18 08:00 08:00 12:00 13:20 Pulse 73 76 Resp 20 18 B/P (MAP) 145/90 (108) Pulse Ox 97 95 96 96 O2 Delivery Room Air Room Air Room Air Room Air 11/06/18 00:00 Intake Total 1350 ml Balance 1350 ml Weight (Pounds): 105 Weight (Ounces): 0.0 Weight (Calculated Kilograms): [id number] Constitutional: AAO x 3, well-developed, well-nourished Respiratory: No accessory muscle use; lungs clear to percussion, lungs clear to auscultation Cardiovascular: regular rate-rhythm, S1 and S2, systolic murmur (faint RASHMI at card base) Gastrointestional: No tender; soft; No guarding, No rebound; audible bowel sounds Extremities: No clubbing, No cyanosis, No significant edema Neurologic/Psychiatric: oriented x 3, grossly intact, power is 5/5 both on sides Skin: No rash on exposed areas, No ulcerations on exposed areas; other ( multiple bruises on the upper and lower ext, at sites of venous punctures or minor trauma (per pt)) Results/Procedures: Labs Laboratory Tests 11/05/18 20:10: Sodium Level 141, Potassium Level 3.2L, Chloride Level 112H, Carbon Dioxide Level 18L, Anion Gap 11, Blood Urea Nitrogen 9, Creatinine 0.87, Estimat Glomerular Filtration Rate > 60, BUN/Creatinine Ratio 10, Glucose Level 150H, Calcium Level 8.4L, Magnesium Level 2.3 11/06/18 03:10: Sodium Level 140, Potassium Level 4.2, Chloride Level 112H, Carbon Dioxide Level 16L, Anion Gap 12, Blood Urea Nitrogen 10, Creatinine 0.83, Estimat Glomerular Filtration Rate > 60, BUN/Creatinine Ratio 12, Glucose Level 120H, Calcium Level 9.0, Magnesium Level 2.3, White Blood Count 5.7, Red Blood Count 3.90L, Hemoglobin 12.3, Hematocrit 37, Mean Corpuscular Volume 95, Mean Corpuscular Hemoglobin 32, Mean Corpuscular Hemoglobin Concent 33, Red Cell Distribution Width 14.0, Platelet Count 172, Mean Platelet Volume 10.4, Neutrophils (%) (Auto) 60, Lymphocytes (%) (Auto) 16, Monocytes (%) (Auto) 20H, Eosinophils (%) (Auto) 3, Basophils (%) (Auto) 1, Neutrophils # (Auto) 3.4, Lymphocytes # (Auto) 0.9L, Monocytes # (Auto) 1.1H, Eosinophils # (Auto) 0.2, Basophils # (Auto) 0.1, Corrected Calcium 9.3, Phosphorus Level 3.0, Total Bilirubin 0.4, Aspartate Amino Transf (AST/SGOT) 33, Alanine Aminotransferase ( ALT/SGPT) 20, Alkaline Phosphatase 87, Total Protein 6.6, Albumin 3.6 Microbiology 11/05/18 MRSA Screen - Final, Complete MRSA not isolated Laboratory Tests 11/04/18 22:58 11/05/18 03:02 11/05/18 20:10 11/06/18 03:10 A/P: Assessment: PAF Echo fo 11/06/18: LVEF 70-75%, grade 1 palafox dysfunction, PASP 35-40 mmHg Hypokalemia, corrected H/o hyperlipidemia H/o hypertension Plan: * Continue current regimen * I again explained her CV issues and our treatment plan to her * Outpatient cardiac f/u is advised DEVON ANDREWS MD FACP FAC CCDS Nov 06, 2018 16:16
== END 2018-11-06 13:23 | disposition home or self-care (01) | DRG 309 ==
LOC: EDUNIT# 22:19 → ER FS 22:20 → ICU 23:40
PROVIDERS: ADMIT Internal Medicine; ATTEND Internal Medicine
DX: I48.0 Paroxysmal atrial fibrillation (principal); E87.2 Acidosis; E87.6 Hypokalemia; E83.42 Hypomagnesemia; D72.821 Monocytosis (symptomatic); I10 Essential (primary) hypertension; E78.5 Hyperlipidemia, unspecified; R06.00 Dyspnea, unspecified; Z87.440 Personal history of urinary (tract) infections
CPT/HCPCS: 36415; 71045; 80048; 80053; 81000; 83735; 83880; 84100; 84155; 84165; 84443; 84484; 85007; 85025; 85027; 85610; 85730; 87081; 93005; 93041; 93306; 96372; 96374

== ENCOUNTER → 2018-12-06 | Outpatient (CLI) | payer MEDICARE, OTHER ==
[~2018-12-06] MED LIST changes: +APIX2.5T PO; +CATHETER FLUSH 10 ML SYR IV PRN; +DILT240C97 PO; +REGADENOSON 0.4 MG/5 ML SYR (LEXISCAN) IV ONE
[2018-12-06 09:25] VITALS: BP 158/58
[2018-12-06 09:28] VITALS: BP 167/57
--- NOTE | 2018-12-06 19:30 | STRESS TEST ---
DATE OF SERVICE: 12/06/2018 RESTING AND POST REGADENOSON TECHNETIUM-99M TETROFOSMIN SPECT CT IMAGING ORDERING PHYSICIAN: Lashonda Nielson APRN PRIMARY CARE PHYSICIAN: Dr. Dimas. OTHER PHYSICIAN: Dr. Andrews. CLINICAL DIAGNOSES: Hypertension, tiredness, weakness, paroxysmal atrial fibrillation. Baseline images were carried out after injection of 10.58 mCi of Technetium-99M Tetrofosmin. This was followed by 0.4 mg of regadenoson and 29.7 mCi of Technetium-99M Tetrofosmin for stress imaging. The electrocardiogram showed sinus rhythm at baseline. There was considerable baseline artifact. There appears to be nonspecific ST abnormality. The electrocardiogram did not change significantly with the regadenoson infusion. The patient did not voice any symptoms. Review of images at rest and following stress does not indicate any significant perfusion defects consistent with significant myocardial ischemia or infarction. Gated images show normal global left ventricular systolic function with normal regional wall motion. Left ventricular ejection fraction is calculated to be 86%. Left ventricular end diastolic volume is 31 mL. TID is absent (0.9). CONCLUSIONS: 1. No evidence of any significant myocardial ischemia or infarction on this study. 2. Normal to hyperdynamic left ventricular systolic function with a calculated ejection fraction of 86%. 3. No regional wall motion abnormality is seen on this study. Job ID: [id number] DocumentID: [id number] Dictated Date: 12/06/2018 16:16:04 Natural Sciences Department Chair Date: 12/06/2018 19:29:29 Dictated By: DEVON ANDREWS MD, MA, FACP, FACC,
== END ==
LOC: CARD 07:45
PROVIDERS: ATTEND Nurse Practitioner Family
DX: I10 Essential (primary) hypertension (principal); I48.0 Paroxysmal atrial fibrillation; R53.1 Weakness; R53.83 Other fatigue; Z79.01 Long term (current) use of anticoagulants
CPT/HCPCS: 78452; 93017

== ENCOUNTER → 2019-04-07 | Outpatient (CLI) | payer MEDICARE, OTHER ==
[~2019-04-07] MED LIST changes: -CATHETER FLUSH 10 ML SYR IV PRN; -REGADENOSON 0.4 MG/5 ML SYR (LEXISCAN) IV ONE
== END ==
LOC: LABNPT 18:58
PROVIDERS: ATTEND Pediatrics
DX: R30.0 Dysuria (principal)
CPT/HCPCS: 87077; 87088; 87186

== ENCOUNTER → 2019-08-21 | Outpatient (CLI) | payer MEDICARE, OTHER ==
--- NOTE | 2019-08-21 13:11 | Diagnostic Imaging Report ---
INDICATION: Neck pain. TIME OF EXAM: 12:49 p.m. FINDINGS: Curvature of the cervical spine is normal. There may be minimal retrolisthesis of C6 on C7. Significant degenerative disc disease at C5-C6 and C6-C7 levels is noted with disc space narrowing and marginal spurring. Prevertebral tissues are normal. There is multilevel facet arthropathy. There appears to be some compression involving the T3 and potentially T4 vertebral bodies on the swimmer's view. Age of this is indeterminate. IMPRESSION: Cervical spondylosis. No acute bony abnormality within the cervical spine is seen. There does appear to be some questionable compression in the upper thoracic vertebrae at T3 and T4, age indeterminate. MRI would be useful for further evaluation, if pain persists. Dictated by: Dictated on workstation # [id number]
--- NOTE | 2019-08-21 13:13 | Diagnostic Imaging Report ---
INDICATION: Back pain. TIME OF EXAM: 12:52 p.m. TECHNIQUE: Two views of thoracic spine were obtained. FINDINGS: Upper thoracic levels are not well seen on this exam. Please see cervical spine report. Mid and lower thoracic spine shows normal vertebral body heights. No acute compression fracture is seen. There is generalized degenerative disc disease with variable disc space narrowing. Paraspinous line is intact. IMPRESSION: Thoracic spondylosis. No acute bony abnormality is detected. Dictated by: Dictated on workstation # [id number]
--- NOTE | 2019-08-21 13:30 | Diagnostic Imaging Report ---
INDICATION: Back pain. TIME OF EXAM: 12:56 p.m. FINDINGS: There is left convexity lumbar scoliotic curvature. There is grade 2 spondylolisthesis of L4 on L5 as well as L5 on S1. Vertebral body heights are maintained. No acute compression fracture is seen. There is generalized demineralization. Multilevel degenerative disc disease with variable disc space narrowing is noted. Aorta is heavily calcified. IMPRESSION: Lumbar spondylosis and spondylolisthesis of L4-L5 and L5-S1. No acute compression fracture is seen. Dictated by: Dictated on workstation # [id number]
== END ==
LOC: RAD 12:30
PROVIDERS: ATTEND Pediatrics
DX: M47.812 Spondylosis without myelopathy or radiculopathy, cervical region (principal); M47.817 Spondylosis without myelopathy or radiculopathy, lumbosacral region; M43.17 Spondylolisthesis, lumbosacral region; M47.814 Spondylosis without myelopathy or radiculopathy, thoracic region
CPT/HCPCS: 72040; 72070; 72100